=== PATIENT | male | born 1985 | race Caucasian/White ===

== ENCOUNTER 2017-03-14 09:59 | Day surgery (SDC) | payer OTHER ==
[2017-03-14] VITALS (12 sets, daily range): BP systolic 126–142; BP diastolic 60–87; PULSE 71–94; RESP 16–26; Ht 180.3 cm; Wt 96.0 kg
[~2017-03-14] VITALS: Ht 180.3 cm; Wt 96.0 kg
[2017-03-14] MEDS ORDERED: ARIP10TA13 PO (10:37)
[2017-03-14] MEDS ORDERED: ABAC1TAB12 PO (10:37)
[2017-03-14] MEDS ORDERED: BUPR-75 PO (10:38)
[2017-03-14] MEDS ORDERED: BEN50 PO (10:39)
[2017-03-14] MEDS ORDERED: DIVA250T4 PO (10:39)
[2017-03-14] MEDS ORDERED: TOPI-25 PO (10:40)
[2017-03-14] MEDS ORDERED: LIDOCAINE 1%/EPI 30 ML INJ ONE (11:35)
[2017-03-14] MEDS ORDERED: BACITRACIN/POLYMYXIN 28.35 GM OINT TOP ONE (11:35)
[2017-03-14] MEDS ORDERED: COCAINE 4% 4 ML TOP ONE (11:35)
[2017-03-14] MEDS ORDERED: OXYMETAZOLINE 0.05% 15 ML NAS SPRAY NASAL ONE (11:35)
[2017-03-14] MEDS ORDERED: SUCCINYLCHOLINE CHLORIDE 100 MG/5 ML SYG IV ONE (12:51)
[2017-03-14] MEDS ORDERED: LIDOCAINE 2% (SDV) 5 ML INJ ONE (12:51)
[2017-03-14] MEDS ORDERED: ROCURONIUM 50 MG INJ ONE (12:51)
[2017-03-14] MEDS ORDERED: PROPOFOL 20 ML ONE (12:51)
[2017-03-14] MEDS ORDERED: ACETAMINOPHEN 1000MG/100ML IV 100 ML ONE (12:59)
[2017-03-14] MEDS ORDERED: CEFAZOLIN 1 GM INJ ONE (13:05)
[2017-03-14] MEDS ORDERED: ESMOLOL 10 ML ONE (13:08)
[2017-03-14] MEDS ORDERED: DEXAMETHASONE 4 MG/ML 1 ML INJ ONE ×2 (13:13→13:40)
[2017-03-14] MEDS ORDERED: ONDANSETRON 4 MG INJ ONE (13:13)
[2017-03-14] MEDS ORDERED: LABETALOL HCL 20MG INJ ONE (13:20)
[2017-03-14] MEDS ORDERED: GLYCOPYRROLATE 0.4 MG INJ ONE (13:41)
[2017-03-14] MEDS ORDERED: NEOSTIGMINE 3 MG/3 ML SYRINGE ONE (13:41)
--- NOTE | 2017-03-14 14:21 | HPN ---
Date/Time of Note Date/Time of Note DATE: 03/14/17 TIME: 14:20 Interval H&P Admission Note Pt. seen H&P reviewed: No system changes KATHLEEN GERARD MD Mar 14, 2017 14:21
--- NOTE | 2017-03-14 14:29 | OPR ---
Date/Time of Note Date/Time of Note DATE: 03/14/17 TIME: 14:21 Operative Report Procedure Date: Mar 14, 2017 Preoperative Diagnosis Left chronic maxillary and ethmoid sinusitis, iatrogenic oroantral fistula. Postoperative Diagnosis Same Operation/Procedure Performed Image guided endoscopic left total ethmoidectomy, maxillary antrostomy and removal of tissue. Adjacent tissue transfer, buccal fat transposition, buccal mucosal rotation flap reconstruction of oroantral fistula. Surgeon see signature line Revenue Integrity Analyst None Anesthesia Type: general Estimated Blood Loss: 10 - 50 ml's Transfusion none Specimen Maxillary and ethmoid sinus contents. Grafts/Implants none Complications none Pt Condition Post Procedure: stable Disposition: PACU Indications Chronic sinusitis, purulent drainage to left mouth from post extraction left maxillary oroantral fistula. Procedure Description Description of procedure:The patient was identified in the holding area. We had a discussion to confirm understanding of all indications risks benefits alternatives and postoperative care associated with the operation. The patient signed informed consent was taken to the operating room. The patient was laid supine on the operating room table and anesthesia was provided in the following manner: GETA. The face was draped in sterile fashion and the nose was packed with 4% cocaine pledgets. The right buccal mucosa was infiltrated with 5 cc of 1 % lidocaine with epinephrine just anterior to the punctum of the parotid duct on the left side. The [employer] image guidance system was installed and calibrated. 0 endoscopy was performed of all nasal turbinates and meati. This revealed the findings described above. Namely, left middle meatus pus, mucosal thickening. The procedure began on the left side under endoscopic guidance. The microdebrider was used to resect the uncinate process in an inferior to superior fashion until the area of the frontal sinus outflow tract was reached. The maxillary sinus ostium was identified and entered with the microdebrider. It was widened anteriorly and inferiorly to complete the maxillary antrostomy. Extensive intrasinus polyp and mucosal thickening was resected. Ethmoidectomy: Next, the zero degree endoscope was again used to visualize the middle meatus. Anterior and posterior ethmoid air cells were resected in an inferior to superior fashion sparing the lamina papyracea and the skull base. All excess mucosa and polypoid tissue were removed with an upbiting forcep. At this point, all bony fragments were removed. The mouth was addressed next. A self retaining retractor was used to expand the oral cavity. The polyp within the left OA fistula was palpated and investigated. This was all granulation and polypoid tissue, none of which could be used for reconstruction. It was all resected and the gingival mucosa elevated circumferentially. A marking pen was used to outline incision for buccal and gingival mucosal rotation flap. This was made sharply and blunt dissection was used to elevate. The buccal fat was then identified and transposed into the defect. It was secured with several mattress sutures. Next, the flap was rotate in and secured with interrupted 40 chromic for a tight closure. Secondary endoscopy revealed no bleeding. The patient was awakened, extubated and taken to the PACU in stable condition. Complications: None. KATHLEEN GERARD MD Mar 14, 2017 14:29
[2017-03-14] MEDS ORDERED: ONDANSETRON 4 MG INJ IV PRN (14:30)
[2017-03-14] MEDS ORDERED: FENTAnyl 50 MCG/ML VIAL IV PRN ×3 (15:00)
[2017-03-14] MEDS ORDERED: ACETAMINOPHEN 325 MG TAB ONE (15:00)
[2017-03-14] MEDS ORDERED: ACETAMINOPHEN 325 MG TAB PO PRN (15:30)
== END 2017-03-14 15:55 | disposition home or self-care (01) ==
LOC: SDS 09:59
PROVIDERS: ATTEND Otolaryngology
DX: J32.0 Chronic maxillary sinusitis (principal); J32.2 Chronic ethmoidal sinusitis; E78.5 Hyperlipidemia, unspecified
CPT/HCPCS: 30580; 31255; 31267; J0131; J0690; J1100; J2405; J2710; Z7512; Z7610; 88304

== ENCOUNTER 2017-03-19 11:13 | Emergency (ER) | END 2017-03-19 13:47 | disposition left against medical advice (07) ==